=== PATIENT | male | born 1965 | race Caucasian/White ===

== ENCOUNTER 2017-10-12 20:17 | Emergency (ER) | payer MEDICARE, MEDICAID ==
[~2017-10-12] VITALS: Ht 175.3 cm; Wt 80.0 kg
[~2017-10-12 20:17] MED LIST: CLORTIMAZOLE TP; COM10T PO; DIL100C PO; FLUO20CA39 PO; IBUP-1984 PO; LORA1TAB PO; OLAN2.5T3 PO; ONDA4TAB6 PO; OXCA300T52 PO; OXCA600T37 PO; RANI300C7 PO
[2017-10-12 20:20] VITALS: BP 147/91
[2017-10-12] MEDS ORDERED: TETanus/Pertussis (Acell)/Diphther VAC/PF (Tdap-Adult) 0.5ml syringe IM ONE (21:30)
[2017-10-12] MEDS ORDERED: BUPIVAcaine/PF 2.5 mg/ml (0.25%) 30ml vial IJ ONE (21:30)
[2017-10-12] MEDS ORDERED: acetaminophen 325mg tablet PO ONE (22:10)
== END 2017-10-12 23:55 | disposition home or self-care (01) ==
LOC: ER 20:17
DX: S01.112A Laceration without foreign body of left eyelid and periocular area, initial encounter (principal); K21.9 Gastro-esophageal reflux disease without esophagitis; E11.9 Type 2 diabetes mellitus without complications; Z79.899 Other long term (current) drug therapy; W01.198A Fall on same level from slipping, tripping and stumbling with subsequent striking against other object, initial encounter; Y93.89 Activity, other specified; Y92.89 Other specified places as the place of occurrence of the external cause; Y99.9 Unspecified external cause status
CPT/HCPCS: 12011; 90471; 90715; 99284; A6449

== ENCOUNTER 2018-06-21 15:20 | Inpatient (IN) | payer MEDICARE, MEDICAID ==
[~2018-06-21] VITALS: Ht 175.3 cm; Wt 66.0 kg
[2018-06-21] MEDS ORDERED: LORazepam 2 mg/ml vial IV ONE (15:55)
[2018-06-21 16:40] LABS: BASOPHILS % (AUTO) 0.1 % (0-1); EOSINOPHILS % (AUTO) 0.1 % (0-6); HEMATOCRIT 35.6 % (42.0-52.0); HEMOGLOBIN 12.5 g/dl (14.0-17.9); LYMPHOCYTES # (AUTO) 0.5 X10'3 (1.1-4.8); LYMPHOCYTES % (AUTO) 4.5 % (21-51); MEAN CORPUSCULAR HEMOGLOBIN 30.4 PG (27.0-31.0); MEAN CORPUSCULAR VOLUME 86.9 FL (78-98); MONOCYTES # (AUTO) 0.9 X10'3 (0-0.9); MONOCYTES % (AUTO) 7.5 % (2-12); NEUTROPHILS # (AUTO) 10.3 X10'3 (1.8-7.7); NEUTROPHILS % (AUTO) 87.8 % (42-75); PLATELET COUNT 185 X10'3 (140-440); RED CELL DISTRIBUTION WIDTH 13.5 % (11.5-14.5); WHITE BLOOD COUNT 11.7 X10'3 (4.5-11.0)
[2018-06-21 16:48] LABS: ALBUMIN 3.4 G/DL (3.4-5.0); ANION GAP 10 (8-16); BLOOD UREA NITROGEN 24 MG/DL (7-18); BUN/CREATININE RATIO 20.7 (5.4-32.0); CALCIUM 7.9 MG/DL (8.5-10.1); CHLORIDE 87 MMOL/L (99-107); CREATININE 1.16 MG/DL (0.60-1.10); GLUCOSE 156 MG/DL (70-104); PHENYTOIN (DILANTIN) 19.8 UG/ML (10.0-20.0); POTASSIUM 3.5 MMOL/L (3.5-5.1); TOTAL CARBON DIOXIDE 23.4 MMOL/L (24-32); eGFR 66 ML/MIN
[2018-06-21 16:53] LABS: SODIUM 120 MMOL/L (135-145)
--- NOTE | 2018-06-21 17:31 | NUR ---
Dr king notified of sodium 120.
[2018-06-21 17:38] LABS: ETHANOL < 0.010 GM/DL (0.0-0.010)
[2018-06-21 17:39] LABS: CLARITY,URINE CLEAR (Clear); COLOR,URINE YELLOW (Yellow); GLUCOSE, URINE NEGATIVE (Neg); KETONES,URINE TRACE mg/dl (Neg); LEUKOCYTE ESTERASE ,URINE NEGATIVE (Neg); NITRITES, URINE NEGATIVE (Neg); OCCULT BLOOD,URINE MODERATE (Neg); PH,URINE 5.5 (4.8-8.0); PROTEIN,URINE NEGATIVE (Neg); UROBILINOGEN,URINE 0.2 E.U/dL (0.2-1.0)
[2018-06-21 17:44] LABS: UA COLLECTION TYPE CLN CATCH MIDSTREAM
[2018-06-21 17:45] LABS: BACTERIA,URINE NONE SEEN /HPF (Neg); MUCUS STRANDS FEW /LPF (Neg); RBC,URINE 0-2 /HPF (0-2); SQUAMOUS EPITHELIAL CELL,UR NONE SEEN /LPF (FEW); WBC,URINE 0-4 /HPF (0-4)
[2018-06-21 17:51] LABS: URINE AMPHETAMINE SCREEN NEGATIVE (Neg); URINE BARBITUATE SCREEN NEGATIVE (Neg); URINE BENZODIAZEPINES SCREEN NEGATIVE (Neg); URINE CANNABINOID SCREEN NEGATIVE (Neg); URINE COCAINE SCREEN NEGATIVE (Neg); URINE METHADONE SCREEN NEGATIVE (Neg); URINE OPIATE SCREEN NEGATIVE (Neg); URINE PHENCYCLIDINE SCREEN NEGATIVE (Neg)
[2018-06-21] MEDS ORDERED: normal saline 1000ml 1,000 ML IV ONE (18:08)
[2018-06-21 19:14] LABS: OSMOLALITY 258 MOSM/K (280-300)
[2018-06-21] MEDS ORDERED: DOCU-261 PO (20:18)
[2018-06-21] MEDS ORDERED: LEVE500T PO (20:18)
[2018-06-21] MEDS ORDERED: HALO5TAB PO (20:18)
[2018-06-21] MEDS ORDERED: CHOL10002 PO (20:18)
[2018-06-21] MEDS ORDERED: magnesium hydroxide 30ml (MOM) UD suspension PO PRN (20:40)
[2018-06-21] MEDS ORDERED: acetaminophen 650mg rectal suppository RC PRN (20:40)
[2018-06-21] MEDS ORDERED: LORazepam 2 mg/ml vial IV PRN (20:40)
[2018-06-21] MEDS ORDERED: potassium Cl 40MEQ/NS 500ml 500 ML IV PRN ×2 (20:40)
[2018-06-21] MEDS ORDERED: acetaminophen 325mg tablet PO PRN ×2 (20:40)
[2018-06-21] MEDS ORDERED: ondansetron/PF 4mg/2ml inj IV PRN (20:40)
[2018-06-21] MEDS ORDERED: potassium Cl 20 mEq SR tablet PO PRN (20:40)
--- NOTE | 2018-06-21 20:54 | NUR ---
Per February,LINN stop fluids now and put patient on 2L fluid restriction
[2018-06-21] MEDS ORDERED: OLANZapine 2.5MG tablet PO SCH (21:00)
[2018-06-21] MEDS: famotidine 20mg tablet PO SCH (22:09)
[2018-06-21] MEDS: haloperidol 5mg tablet PO SCH (22:09)
[2018-06-21] MEDS: LORazepam 1 MG tablet PO SCH (22:09)
[2018-06-21] MEDS: levetiracetam 250mg tablet PO SCH (22:10)
[2018-06-21] MEDS: olanzapine 10mg tablet PO SCH (22:10)
[2018-06-21] MEDS: phenytoin sod ER 100mg capsule PO SCH (22:10)
[2018-06-22] VITALS (22 sets, daily range): BP systolic 87–140; BP diastolic 53–88
[2018-06-22] MEDS: dextrose 5%-water 1,000 ML IV SCH ×7 (00:04→22:14)
--- NOTE | 2018-06-22 00:59 | NUR ---
CALLED REPORT TO BOBBY IN ICU, PT CASE DISCUSSED, I REVIEWED LABS AND CURRENT TREATMENT PLAN. BOBBY AGREES TO ASSUME CARE OF THE PATIENT, PT BELONGINGS TO BE TRANSPORTED WITH THE PATIENT TO THE ICU.
--- NOTE | 2018-06-22 01:00 | NUR ---
Patient here from ER into room CICU 2006. I have received report from Dalton MONZON and had the opportunity to ask questions and assume patient care.
[2018-06-22 04:47] LABS: BASOPHILS % (AUTO) 0.3 % (0-1); EOSINOPHILS % (AUTO) 0.5 % (0-6); HEMATOCRIT 39.5 % (42.0-52.0); HEMOGLOBIN 13.6 g/dl (14.0-17.9); LYMPHOCYTES # (AUTO) 1.2 X10'3 (1.1-4.8); LYMPHOCYTES % (AUTO) 13.5 % (21-51); MEAN CORPUSCULAR HEMOGLOBIN 30.3 PG (27.0-31.0); MEAN CORPUSCULAR HGB CONC 34.5 g/dL (33.0-36.5); MEAN CORPUSCULAR VOLUME 87.8 FL (78-98); MEAN PLATELET VOLUME 8.4 FL (7.4-10.4); MONOCYTES # (AUTO) 0.9 X10'3 (0-0.9); MONOCYTES % (AUTO) 10.6 % (2-12); NEUTROPHILS # (AUTO) 6.7 X10'3 (1.8-7.7); NEUTROPHILS % (AUTO) 75.1 % (42-75); PLATELET COUNT 206 X10'3 (140-440); RED CELL DISTRIBUTION WIDTH 13.8 % (11.5-14.5); WHITE BLOOD COUNT 8.9 X10'3 (4.5-11.0)
[2018-06-22 05:01] LABS: ALANINE AMINOTRANSFERASE 45 U/L (12-78); ALBUMIN 3.3 G/DL (3.4-5.0); ALBUMIN/GLOBULIN RATIO 1.1 (1.1-1.5); ALKALINE PHOSPHATASE 118 IU/L (46-116); ANION GAP 4 (8-16); ASPARTATE AMINO TRANSFERASE 53 U/L (10-37); BILIRUBIN,TOTAL 0.4 MG/DL (0.1-1.0); BLOOD UREA NITROGEN 19 MG/DL (7-18); BUN/CREATININE RATIO 16.2 (5.4-32.0); CALCIUM 8.3 MG/DL (8.5-10.1); CHLORIDE 103 MMOL/L (99-107); CREATININE 1.17 MG/DL (0.60-1.10); GLUCOSE 168 MG/DL (70-104); PHOSPHORUS 3.7 MG/DL (2.3-4.5); POTASSIUM 3.7 MMOL/L (3.5-5.1); SODIUM 137 MMOL/L (135-145); TOTAL CARBON DIOXIDE 30.2 MMOL/L (24-32); TOTAL PROTEIN 6.3 G/DL (6.4-8.2); eGFR 65 ML/MIN
[2018-06-22] MEDS ORDERED: dextrose 5%-water 1,000 ML IV ONE (05:32)
--- NOTE | 2018-06-22 05:35 | NUR ---
Temi at bedside. Orders received. D5 1000mL bolus started. Pt incontinent, condom cath placed.
[2018-06-22 05:44] LABS: PARTIAL THROMBOPLASTIN TIME 27 SECONDS (22-32)
--- NOTE | 2018-06-22 06:22 | NUR ---
Problems reprioritized. Patient report given, questions answered & plan of care reviewed with Sol MONZON.
--- NOTE | 2018-06-22 06:26 | NUR ---
Patient in room CICU 2006. I have received report from Melissa MONZON and had the opportunity to ask questions and assume patient care. Pt resting in no apparent distress, vital signs within normal limits, and in view of RN. Will continue to monitor.
[2018-06-22] MEDS: pantoprazole 40mg Tablet.DR PO SCH (07:51)
[2018-06-22] MEDS: levetiracetam 250mg tablet PO SCH ×2 (07:51→20:33)
[2018-06-22] MEDS: haloperidol 5mg tablet PO SCH ×2 (07:51→20:33)
[2018-06-22] MEDS: vitamin D (cholecalciferol) 1,000 unit tablet PO SCH (07:51)
[2018-06-22] MEDS: phenytoin sod ER 100mg capsule PO SCH ×2 (07:51→20:33)
[2018-06-22] MEDS: olanzapine 10mg tablet PO SCH ×2 (07:52→21:07)
[2018-06-22] MEDS: docusate sod 100mg capsule PO SCH ×2 (07:52→20:32)
[2018-06-22] MEDS: LORazepam 1 MG tablet PO SCH ×2 (07:52→20:32)
[2018-06-22] MEDS: FLUoxetine 20mg capsule PO SCH (07:52)
[2018-06-22] MEDS: heparin, porcine 5000 units/ml vial SQ SCH ×2 (07:53→20:33)
[2018-06-22] MEDS: K, MAG and/or Phos replacement - Verify level? MC SCH (08:00)
[2018-06-22] MEDS ORDERED: OXCARBAZEPINE 300 MG PO SCH (08:00)
[2018-06-22] MEDS: DESMOPRESSIN IV SCH ×3 (08:00→16:50)
[2018-06-22] MEDS: NORMAL SALINE IV SCH ×3 (08:00→16:50)
[2018-06-22] MEDS ORDERED: docusate sod 100mg capsule PO SCH (08:00)
[2018-06-22] MEDS ORDERED: dextrose 5%-water 1,000 ML IV SCH (12:40)
--- NOTE | 2018-06-22 12:40 | NUR ---
New order from Dr. Granger, Bolus one liter of D5W now and continue with 300 mL/hr of D%W. The RN is to call Dr. Granger with the current sodium level prior to giving third dose of desmopressin. Will continue to monitor.
--- NOTE | 2018-06-22 14:40 | NUR ---
Called and spoke to Dr. Granger and let him know pt's 1400 sodium level is 132. Per Dr. Granger, do not give [address] Granger would like a call once the 1600 sodium lab draw has resulted.
--- NOTE | 2018-06-22 18:28 | NUR ---
Problems reprioritized. Patient report given, questions answered & plan of care reviewed with Elen MONZON.
--- NOTE | 2018-06-22 18:30 | NUR ---
Patient in room CICU 2006. I have received report from Elen MONZON and had the opportunity to ask questions and assume patient care. Pt sitting up eating dinner.
--- NOTE | 2018-06-22 18:30 | NUR ---
Patient in room CICU 2006. I have received report from Sol MONZON and had the opportunity to ask questions and assume patient care.
[2018-06-22] MEDS: famotidine 20mg tablet PO SCH (21:07)
[2018-06-22] MEDS ORDERED: NORMAL SALINE IV SCH (22:00)
[2018-06-22] MEDS ORDERED: DESMOPRESSIN IV SCH (22:00)
[2018-06-23] VITALS (24 sets, daily range): BP systolic 86–126; BP diastolic 60–82
[2018-06-23 01:56] LABS: ALANINE AMINOTRANSFERASE 32 U/L (12-78); ALBUMIN 2.6 G/DL (3.4-5.0); ALKALINE PHOSPHATASE 87 IU/L (46-116); ANION GAP 4 (8-16); ASPARTATE AMINO TRANSFERASE 31 U/L (10-37); BILIRUBIN,TOTAL 0.3 MG/DL (0.1-1.0); BLOOD UREA NITROGEN 15 MG/DL (7-18); BUN/CREATININE RATIO 14.3 (5.4-32.0); CALCIUM 7.5 MG/DL (8.5-10.1); CHLORIDE 93 MMOL/L (99-107); CREATININE 1.05 MG/DL (0.60-1.10); GLUCOSE 136 MG/DL (70-104); MAGNESIUM 1.6 MG/DL (1.5-2.4); PHOSPHORUS 2.4 MG/DL (2.3-4.5); POTASSIUM 3.3 MMOL/L (3.5-5.1); SODIUM 125 MMOL/L (135-145); TOTAL CARBON DIOXIDE 28.1 MMOL/L (24-32); TOTAL PROTEIN 5.1 G/DL (6.4-8.2); eGFR 74 ML/MIN
[2018-06-23] MEDS: dextrose 5%-water 1,000 ML IV SCH (02:11)
[2018-06-23 02:30] LABS: BASOPHILS % (AUTO) 0.2 % (0-1); EOSINOPHILS # (AUTO) 0.2 X10'3 (0-0.9); EOSINOPHILS % (AUTO) 2.6 % (0-6); HEMATOCRIT 30.9 % (42.0-52.0); HEMOGLOBIN 10.7 g/dl (14.0-17.9); LYMPHOCYTES # (AUTO) 1.5 X10'3 (1.1-4.8); LYMPHOCYTES % (AUTO) 24.9 % (21-51); MEAN CORPUSCULAR HEMOGLOBIN 30.7 PG (27.0-31.0); MEAN CORPUSCULAR HGB CONC 34.6 g/dL (33.0-36.5); MEAN CORPUSCULAR VOLUME 88.7 FL (78-98); MEAN PLATELET VOLUME 8.9 FL (7.4-10.4); MONOCYTES # (AUTO) 0.7 X10'3 (0-0.9); NEUTROPHILS # (AUTO) 3.7 X10'3 (1.8-7.7); NEUTROPHILS % (AUTO) 61.3 % (42-75); PLATELET COUNT 146 X10'3 (140-440); RED BLOOD COUNT 3.48 X10'6 (4.70-6.10); RED CELL DISTRIBUTION WIDTH 13.4 % (11.5-14.5)
--- NOTE | 2018-06-23 06:37 | NUR ---
Problems reprioritized. Patient report given, questions answered & plan of care reviewed with Chela MONZON.
[2018-06-23] MEDS: K, MAG and/or Phos replacement - Verify level? MC SCH (08:00)
[2018-06-23] MEDS: potassium Cl 20 mEq SR tablet PO PRN ×2 (09:53→17:38)
[2018-06-23] MEDS: haloperidol 5mg tablet PO SCH ×2 (09:53→20:00)
[2018-06-23] MEDS: FLUoxetine 20mg capsule PO SCH (09:53)
[2018-06-23] MEDS: phenytoin sod ER 100mg capsule PO SCH ×2 (09:54→19:59)
[2018-06-23] MEDS: vitamin D (cholecalciferol) 1,000 unit tablet PO SCH (09:54)
[2018-06-23] MEDS: LORazepam 1 MG tablet PO SCH ×2 (09:54→20:00)
[2018-06-23] MEDS: docusate sod 100mg capsule PO SCH ×2 (09:54→19:59)
[2018-06-23] MEDS: pantoprazole 40mg Tablet.DR PO SCH (09:54)
[2018-06-23] MEDS: olanzapine 10mg tablet PO SCH ×2 (09:55→19:59)
[2018-06-23] MEDS: levetiracetam 250mg tablet PO SCH ×2 (09:55→20:00)
[2018-06-23] MEDS: heparin, porcine 5000 units/ml vial SQ SCH ×2 (09:55→20:01)
[2018-06-23] MEDS ORDERED: PHEN100C12 PO (15:02)
--- NOTE | 2018-06-23 18:15 | NUR ---
Patient in room CICU 2006. I have received report from NA York and had the opportunity to ask questions and assume patient care. Patient is sitting up eating dinner w/o problem, I will continue to monitor.
[2018-06-23] MEDS: famotidine 20mg tablet PO SCH (20:00)
[2018-06-24] VITALS (13 sets, daily range): BP systolic 88–127; BP diastolic 55–82
--- NOTE | 2018-06-24 02:13 | NUR ---
February,REHABILITATION TEACHER notified that patient's Na+ is 137
[2018-06-24] MEDS ORDERED: dextrose 5%-water 1,000 ML IV SCH (02:15)
[2018-06-24 05:18] LABS: BASOPHILS % (AUTO) 0.2 % (0-1); EOSINOPHILS # (AUTO) 0.1 X10'3 (0-0.9); EOSINOPHILS % (AUTO) 1.6 % (0-6); HEMATOCRIT 36.9 % (42.0-52.0); HEMOGLOBIN 12.7 g/dl (14.0-17.9); LYMPHOCYTES # (AUTO) 0.8 X10'3 (1.1-4.8); LYMPHOCYTES % (AUTO) 13.9 % (21-51); MEAN CORPUSCULAR HEMOGLOBIN 30.5 PG (27.0-31.0); MEAN CORPUSCULAR HGB CONC 34.4 g/dL (33.0-36.5); MEAN CORPUSCULAR VOLUME 88.5 FL (78-98); MEAN PLATELET VOLUME 9.1 FL (7.4-10.4); MONOCYTES # (AUTO) 0.6 X10'3 (0-0.9); NEUTROPHILS # (AUTO) 4.4 X10'3 (1.8-7.7); NEUTROPHILS % (AUTO) 74.3 % (42-75); PLATELET COUNT 165 X10'3 (140-440); RED BLOOD COUNT 4.17 X10'6 (4.70-6.10); RED CELL DISTRIBUTION WIDTH 13.8 % (11.5-14.5)
[2018-06-24] MEDS ORDERED: dextrose 5%-water 1,000 ML IV ONE (05:25)
[2018-06-24 05:31] LABS: ALANINE AMINOTRANSFERASE 31 U/L (12-78); ALBUMIN 2.9 G/DL (3.4-5.0); ALKALINE PHOSPHATASE 100 IU/L (46-116); ANION GAP 4 (8-16); ASPARTATE AMINO TRANSFERASE 26 U/L (10-37); BILIRUBIN,TOTAL 0.2 MG/DL (0.1-1.0); BLOOD UREA NITROGEN 13 MG/DL (7-18); BUN/CREATININE RATIO 11.1 (5.4-32.0); CALCIUM 8.6 MG/DL (8.5-10.1); CHLORIDE 106 MMOL/L (99-107); CREATININE 1.17 MG/DL (0.60-1.10); GLUCOSE 104 MG/DL (70-104); MAGNESIUM 1.9 MG/DL (1.5-2.4); PHOSPHORUS 2.7 MG/DL (2.3-4.5); POTASSIUM 4.3 MMOL/L (3.5-5.1); SODIUM 140 MMOL/L (135-145); TOTAL CARBON DIOXIDE 29.6 MMOL/L (24-32); TOTAL PROTEIN 5.9 G/DL (6.4-8.2); eGFR 65 ML/MIN
--- NOTE | 2018-06-24 06:38 | NUR ---
Patient in room CICU 2006. I have received report from NA Sandhu and had the opportunity to ask questions and assume patient care.
[2018-06-24] MEDS: pantoprazole 40mg Tablet.DR PO SCH (07:30)
[2018-06-24] MEDS: vitamin D (cholecalciferol) 1,000 unit tablet PO SCH (08:00)
[2018-06-24] MEDS: K, MAG and/or Phos replacement - Verify level? MC SCH (08:00)
[2018-06-24] MEDS: olanzapine 10mg tablet PO SCH ×2 (08:50→20:43)
[2018-06-24] MEDS: LORazepam 1 MG tablet PO SCH ×2 (08:50→20:41)
[2018-06-24] MEDS: FLUoxetine 20mg capsule PO SCH (08:51)
[2018-06-24] MEDS: docusate sod 100mg capsule PO SCH ×2 (08:51→20:42)
[2018-06-24] MEDS: haloperidol 5mg tablet PO SCH ×2 (08:51→20:41)
[2018-06-24] MEDS: levetiracetam 250mg tablet PO SCH ×2 (08:51→20:41)
[2018-06-24] MEDS: phenytoin sod ER 100mg capsule PO SCH ×2 (08:51→20:43)
[2018-06-24] MEDS: heparin, porcine 5000 units/ml vial SQ SCH ×2 (08:52→20:47)
[2018-06-24 09:36] LABS: HEMOGLOBIN A1C 5.5 % (4.5-6.2)
--- NOTE | 2018-06-24 18:24 | NUR ---
Patient in room ORTHO 4017. I have received report from Drea MONZON and had the opportunity to ask questions and assume patient care.
[2018-06-24] MEDS: famotidine 20mg tablet PO SCH (20:42)
--- NOTE | 2018-06-25 06:00 | NUR ---
Patient in room ORTHO 4017. I have received report from Nel/NA Horton and had the opportunity to ask questions and assume patient care.
[2018-06-25 06:13] LABS: BASOPHILS % (AUTO) 0.3 % (0-1); EOSINOPHILS # (AUTO) 0.1 X10'3 (0-0.9); EOSINOPHILS % (AUTO) 1.9 % (0-6); HEMATOCRIT 35.7 % (42.0-52.0); HEMOGLOBIN 12.3 g/dl (14.0-17.9); LYMPHOCYTES # (AUTO) 0.8 X10'3 (1.1-4.8); LYMPHOCYTES % (AUTO) 16.5 % (21-51); MEAN CORPUSCULAR HEMOGLOBIN 30.9 PG (27.0-31.0); MEAN CORPUSCULAR HGB CONC 34.4 g/dL (33.0-36.5); MEAN CORPUSCULAR VOLUME 89.6 FL (78-98); MEAN PLATELET VOLUME 8.9 FL (7.4-10.4); MONOCYTES # (AUTO) 0.8 X10'3 (0-0.9); MONOCYTES % (AUTO) 15.5 % (2-12); NEUTROPHILS # (AUTO) 3.4 X10'3 (1.8-7.7); NEUTROPHILS % (AUTO) 65.8 % (42-75); PLATELET COUNT 156 X10'3 (140-440); RED BLOOD COUNT 3.99 X10'6 (4.70-6.10); RED CELL DISTRIBUTION WIDTH 13.7 % (11.5-14.5); WHITE BLOOD COUNT 5.1 X10'3 (4.5-11.0)
[2018-06-25 06:26] LABS: ALANINE AMINOTRANSFERASE 30 U/L (12-78); ALBUMIN 2.9 G/DL (3.4-5.0); ALBUMIN/GLOBULIN RATIO 0.9 (1.1-1.5); ALKALINE PHOSPHATASE 99 IU/L (46-116); ANION GAP 4 (8-16); ASPARTATE AMINO TRANSFERASE 20 U/L (10-37); BILIRUBIN,TOTAL 0.2 MG/DL (0.1-1.0); BLOOD UREA NITROGEN 20 MG/DL (7-18); BUN/CREATININE RATIO 14.1 (5.4-32.0); CALCIUM 8.5 MG/DL (8.5-10.1); CHLORIDE 108 MMOL/L (99-107); CREATININE 1.42 MG/DL (0.60-1.10); GLUCOSE 101 MG/DL (70-104); MAGNESIUM 2.2 MG/DL (1.5-2.4); PHOSPHORUS 3.3 MG/DL (2.3-4.5); POTASSIUM 4.7 MMOL/L (3.5-5.1); SODIUM 144 MMOL/L (135-145); TOTAL CARBON DIOXIDE 31.7 MMOL/L (24-32); eGFR 52 ML/MIN
--- NOTE | 2018-06-25 06:40 | NUR ---
Patient report given to Rivka MONZON, questions answered & plan of care reviewed with her.
[2018-06-25] MEDS: pantoprazole 40mg Tablet.DR PO SCH (07:35)
[2018-06-25] MEDS: LORazepam 1 MG tablet PO SCH (08:43)
[2018-06-25] MEDS: docusate sod 100mg capsule PO SCH (08:44)
[2018-06-25] MEDS: phenytoin sod ER 100mg capsule PO SCH (08:45)
[2018-06-25] MEDS: haloperidol 5mg tablet PO SCH (08:45)
[2018-06-25] MEDS: levetiracetam 250mg tablet PO SCH (08:46)
[2018-06-25] MEDS: FLUoxetine 20mg capsule PO SCH (08:46)
[2018-06-25] MEDS: vitamin D (cholecalciferol) 1,000 unit tablet PO SCH (08:46)
[2018-06-25] MEDS: olanzapine 10mg tablet PO SCH (08:47)
[2018-06-25] MEDS: heparin, porcine 5000 units/ml vial SQ SCH (08:47)
--- NOTE | 2018-06-25 14:45 | NUR ---
Received discharge orders from Dr. Varner. No new medications ordered for discharge. TC placed to pts boarding home. No answer and left message notifying Roney that pt is discharged from [facility] and we would be providing a taxi ride home. TC placed to [employer] at 1425. Arranged for 1545 pickup [facility]. Pt's IV-saline lock was discontinued this am with cannula intact when it was located on the pts bed. No redness/swelling at insertion site. Pt dressed and transported via w/c to [facility] to wait for [employer]. Transferred to [facility] for discharge to home.
== END 2018-06-25 14:40 | disposition home or self-care (01) | DRG 101 ==
LOC: ER 15:21 → CICU 2S 20:38 → CMPBEDREQ 06-22 15:14 → ORTHO 4S 06-24 12:35
PROVIDERS: ADMIT Internal Medicine Critical Care Medicine; ATTEND Internal Medicine Critical Care Medicine
DX: G40.89 Other seizures (principal); E87.1 Hypo-osmolality and hyponatremia; E11.9 Type 2 diabetes mellitus without complications; F25.9 Schizoaffective disorder, unspecified; K21.9 Gastro-esophageal reflux disease without esophagitis; F32.9 Major depressive disorder, single episode, unspecified; R62.50 Unspecified lack of expected normal physiological development in childhood; F17.210 Nicotine dependence, cigarettes, uncomplicated; Z79.899 Other long term (current) drug therapy
CPT/HCPCS: 36415; 70450; 71045; 80048; 80053; 80177; 80185; 80305; 80320; 81001; 82948; 83036; 83735; 83930; 83935; 84100; 84295; 84300; 84443; 85025; 85610; 85730; 87070; 93005; 96374; 97162; 99291; G0378; J1644; J2060; J2597; J3490; J7030; J7070

== ENCOUNTER 2021-07-12 07:58 | Emergency (ER) | payer MEDICARE, MEDICAID ==
[~2021-07-12] VITALS: Ht 175.3 cm; Wt 89.5 kg
[~2021-07-12 07:58] MED LIST changes: +CHOL10002 PO; -CLORTIMAZOLE TP; -COM10T PO; -DIL100C PO; +DOCU-337 PO; +HALO5TAB PO; -IBUP-1984 PO; +LEVE500T PO; -ONDA4TAB6 PO; -OXCA300T52 PO; -OXCA600T37 PO; +PHEN100C12 PO
[2021-07-12 08:29] LABS: BASOPHILS % (AUTO) 0.5 % (0-1); EOSINOPHILS # (AUTO) 0.2 X10'3 (0-0.9); EOSINOPHILS % (AUTO) 5.5 % (0-6); HEMATOCRIT 43.3 % (42.0-52.0); HEMOGLOBIN 14.6 g/dl (14.0-17.9); LYMPHOCYTES # (AUTO) 1.1 X10'3 (1.1-4.8); LYMPHOCYTES % (AUTO) 26.8 % (21-51); MEAN CORPUSCULAR HEMOGLOBIN 30.5 PG (27.0-31.0); MEAN CORPUSCULAR HGB CONC 33.7 g/dL (33.0-36.5); MEAN CORPUSCULAR VOLUME 90.6 FL (78-98); MEAN PLATELET VOLUME 8.3 FL (7.4-10.4); MONOCYTES # (AUTO) 0.4 X10'3 (0-0.9); MONOCYTES % (AUTO) 10.4 % (2-12); NEUTROPHILS # (AUTO) 2.4 X10'3 (1.8-7.7); NEUTROPHILS % (AUTO) 56.8 % (42-75); PLATELET COUNT 160 X10'3 (140-440); RED BLOOD COUNT 4.78 X10'6 (4.70-6.10); RED CELL DISTRIBUTION WIDTH 13.6 % (11.5-14.5); WHITE BLOOD COUNT 4.2 X10'3 (4.5-11.0)
[2021-07-12 08:40] LABS: ALANINE AMINOTRANSFERASE 19 U/L (12-78); ALBUMIN 3.6 G/DL (3.4-5.0); ALBUMIN/GLOBULIN RATIO 1.1 (1.1-1.5); ALKALINE PHOSPHATASE 97 IU/L (46-116); ANION GAP 7 (8-16); ASPARTATE AMINO TRANSFERASE 15 U/L (10-37); BILIRUBIN,TOTAL 0.2 MG/DL (0.1-1.0); BLOOD UREA NITROGEN 31 MG/DL (7-18); BUN/CREATININE RATIO 23.3 (5.4-32.0); CHLORIDE 111 MMOL/L (99-107); CREATININE 1.33 MG/DL (0.60-1.10); GLUCOSE 109 MG/DL (70-104); POTASSIUM 4.7 MMOL/L (3.5-5.1); SODIUM 145 MMOL/L (135-145); TOTAL CARBON DIOXIDE 27.3 MMOL/L (24-32); TOTAL PROTEIN 6.8 G/DL (6.4-8.2); eGFR 56 ML/MIN
[2021-07-12 08:58] LABS: APTT 25 SECONDS (22-32)
[2021-07-12] MEDS ORDERED: levetiracetam inj 500 MG in normal saline 100ml IV soln 95 ML IV SCH ×2 (09:00→20:00)
[2021-07-12 10:07] VITALS: BP 142/82
[2021-07-12 11:02] LABS: PHENYTOIN (DILANTIN) 12.6 UG/ML (10.0-20.0)
== END 2021-07-12 11:07 | disposition home or self-care (01) ==
LOC: ER 07:58
DX: R07.89 Other chest pain (principal); R56.9 Unspecified convulsions; I25.2 Old myocardial infarction; E11.9 Type 2 diabetes mellitus without complications; K21.9 Gastro-esophageal reflux disease without esophagitis; Z87.01 Personal history of pneumonia (recurrent); Z79.899 Other long term (current) drug therapy
CPT/HCPCS: 36415; 71045; 80053; 80185; 83880; 84484; 85025; 85610; 85730; 93005; 96365; 99285; J1953; J3490